=== PATIENT | female | born 1970 | race Caucasian/White ===

== ENCOUNTER 2017-08-28 10:00 | Outpatient (RCR) | payer OTHER ==
[~2017-08-28 10:00] MED LIST: FOL1 PO; LORA-1221 PO; METH2.5T43 PO; METH4TAB66 PO; NAP250 PO; ONDA4TAB PO; SCOT TD; TIMO5DRO3 OP; VALA500T66 PO
== END 2017-08-28 18:00 | disposition home or self-care (01) ==
LOC: AUD 10:00
PROVIDERS: ATTEND Otolaryngology
DX: H81.10 Benign paroxysmal vertigo, unspecified ear (principal); H93.19 Tinnitus, unspecified ear
CPT/HCPCS: 92557; 92570

== ENCOUNTER → 2018-10-01 | Outpatient (CLI) | payer OTHER ==
[~2018-10-01] MED LIST changes: +FLUT16SP19
--- NOTE | 2018-10-01 11:44 | RADIOLOGY IMAGING REPORT ---
FACILITY: [facility] PATIENT NAME: Carli Layton : 1970 MR: [id number] V: [id number] EXAM DATE: ORDERING PHYSICIAN: SHANT GARCIA TECHNOLOGIST: Location: [facility] [place] Patient: Carli Layton : 1970 Visit/Account:[id number] Date of Sevice: 10/01/2018 CERVICAL SPINE 2 OR 3 VIEW Indication: Neck pain Comparison: None. Findings: Mild disc space narrowing is seen with anterior osteophytes at C5-6. Remaining disc spaces are normal. Facets are normal. IMPRESSION: Mild cervical spondylosis C5-6. Report Dictated By: Dante Ambrose at 10/01/2018 11:39 AM Report E-Signed By: Dante Ambrose at 10/01/2018 11:40 AM WSN:[id number]
== END ==
LOC: RAD 10:53
PROVIDERS: ATTEND Nurse Practitioner Psychiatric/Mental Health
DX: M47.892 Other spondylosis, cervical region (principal)
CPT/HCPCS: 72040

== ENCOUNTER → 2018-10-25 | Outpatient (CLI) | payer OTHER ==
--- NOTE | 2018-10-26 10:46 | RADIOLOGY IMAGING REPORT ---
[place] [facility] [place] NAME: JENNY ARNOLD : [id number] MR: [id number] V: [id number] EXAM DATE: [id number] ORDERING PHYSICIAN: SHANT GARCIA TECHNOLOGIST: Sanaz Richardson PROCEDURE:BILATERAL DIGITAL SCREENING MAMMOGRAM WITH CAD ASSISTED INTERPRETATION & 3D TOMOSYNTHESIS COMPARISON:Prior mammograms 11/11/16, 11/07/15, 10/25/15, 05/11/12. INDICATIONS:screening FINDINGS: The breasts are heterogeneously dense which can obscure small masses. The parenchymal pattern has remained stable allowing for difference in mammographic technique & patient positioning. DIAGNOSTIC CATEGORY 1--NEGATIVE. RECOMMENDATIONS: ROUTINE MAMMOGRAM AND CLINICAL EVALUATION. IMPRESSION: BIRADS 1: Negative. No significant abnormality is seen. Dictated by: Dipika Anaya M.D. on 10/25/2018 at 18:06 Transcribed by: SERGE on 10/26/2018 at 7:55 Approved by: Dipika Anaya M.D. on 10/26/2018 at 10:45 [facility]
== END ==
LOC: MAMO 01:21
PROVIDERS: ATTEND Nurse Practitioner Psychiatric/Mental Health
DX: Z12.31 Encounter for screening mammogram for malignant neoplasm of breast (principal)
CPT/HCPCS: 77063; 77067

== ENCOUNTER → 2018-12-15 | Outpatient (CLI) | payer OTHER ==
[~2018-12-15] MED LIST changes: +ALBU8.5H IH; +BACI28.310 TP; +CETI10CA8 PO; +CHOL10005 PO; +DIAZ2TAB72 PO; +FLUT16SP19 NS; +FLUT1DIS29 IH; +HYDR-2966 PO; +LISI20TA29 PO; +METF-450 PO; +MONT10TA PO; +ONDA4TAB9 PO; +PRED20TA6 PO; +ROSU5TAB3; +TRIA10.8
== END ==
LOC: AUD 08:30
PROVIDERS: ATTEND Physician Assistant
DX: H93.12 Tinnitus, left ear (principal); R42 Dizziness and giddiness
CPT/HCPCS: 92557; 92570

== ENCOUNTER → 2019-03-26 | Outpatient (REF) | payer OTHER ==
[2019-03-26 18:00] LABS: PLATELET COUNT, AUTOMATED 297 K/uL (150-450)
== END ==
PROVIDERS: ATTEND Nurse Practitioner Family
DX: R07.9 Chest pain, unspecified (principal)
CPT/HCPCS: 82040; 82247; 82310; 82374; 82435; 82565; 82947; 84075; 84132; 84155; 84295; 84450; 84460; 84484; 84520; 85025; 85379